=== PATIENT | female | born 1990 | race Two or more races ===

== ENCOUNTER 2024-05-18 09:45 | Inpatient (IN) | payer OTHER ==
[2024-05-18 10:16] VITALS: BMI 18.0
[2024-05-18] MEDS ORDERED: BISMUTH SUBSALICYLATE 262 MG/15 ML BTL PO PRN (11:16)
[2024-05-18] MEDS ORDERED: LOPERAMIDE HCL 2 MG CAPSULE PO PRN (11:16)
[2024-05-18] MEDS ORDERED: MAGNESIUM HYDROX 2400MG/30ML ORAL SUSPENSION 30 ML CUP PO PRN (11:16)
[2024-05-18] MEDS ORDERED: IBUPROFEN 400 MG TABLET (FP) PO PRN (11:16)
[2024-05-18] MEDS ORDERED: BENZOCAINE/MENTHOL (CHLORASEPTIC ) LOZENGE MM PRN (11:16)
[2024-05-18] MEDS ORDERED: guaiFENesin 600 MG TABLET.ER (FP) PO PRN (11:16)
[2024-05-18] MEDS ORDERED: NICOTINE POLACRILEX 2 MG LOZENGE BC PRN (11:16)
[2024-05-18] MEDS ORDERED: P-EPHED 60MG/TRIPROLIDI 2.5MG TABLET PO PRN (11:16)
[2024-05-18] MEDS ORDERED: NALOXONE (NARCAN) HCL 4 MG/0.1 ML SPRAY NS PRN (11:16)
[2024-05-18] MEDS ORDERED: BENZONATATE 200 MG CAPSULE PO PRN (11:16)
[2024-05-18] MEDS ORDERED: POLYETHYLENE GLYCOL (HEALTHYLAX) 3350 17 GM PACKET PO PRN (11:16)
[2024-05-18] MEDS ORDERED: ACETAMINOPHEN 325 MG TABLET (FP) PO PRN (11:16)
[2024-05-18] MEDS ORDERED: NALOXONE HCL 0.4 MG/ML VIAL IM PRN (11:16)
[2024-05-18] MEDS ORDERED: ONDANSETRON *ODT* 4 MG TABLET ONE (13:20)
[2024-05-18] MEDS: ONDANSETRON *ODT* 4 MG TABLET SL PRN (13:21)
[2024-05-18] MEDS: METHOCARBAMOL 500 MG TABLET PO PRN (18:14)
[2024-05-18] MEDS: hydrOXYzine PAMOATE 25 MG CAPSULE (FP) PO PRN (18:14)
[2024-05-18] MEDS: methaDONE HCL 10 MG TABLET (FOR DETOX USE ONLY) PO ONE (21:48)
[2024-05-18] MEDS: TRIMETHOBENZAMIDE HCL 200MG/2ML INJ IM ONE (21:52)
[2024-05-18] MEDS: MELATONIN 5 MG TABLETS PO SCH (22:53)
[2024-05-18] MEDS: THIAMINE 100 MG TABLET PO SCH (22:53)
[2024-05-19] MEDS: PRENATAL VITAMINS W/ FOLIC ACID TABLET (FP) PO SCH (10:11)
[2024-05-20] MEDS: methaDONE HCL 10 MG TABLET (FOR DETOX USE ONLY) PO ONE (10:02)
[2024-05-20] MEDS: hydrOXYzine PAMOATE 25 MG CAPSULE (FP) PO PRN (10:22)
[2024-05-20] MEDS: DICYCLOMINE HCL 10 MG CAPSULE PO PRN (10:22)
[2024-05-20] MEDS: traZODone HCL 50 MG TABLET (FP) PO SCH (21:22)
[2024-05-21] MEDS: methaDONE HCL 10 MG TABLET PO ONE (13:03)
[2024-05-21] MEDS: cloNIDine HCL 0.1 MG TABLET PO SCH (13:09)
[2024-05-21] MEDS ORDERED: DIVALPROEX SODIUM 250 MG TABLET E.C. PO SCH (22:00)
[2024-05-21] MEDS: traZODone HCL 100 MG TABLET (FP) PO SCH (22:20)
[2024-05-21] MEDS: OLANZapine 5 MG TABLET PO SCH (22:20)
[2024-05-22] MEDS ORDERED: methaDONE HCL 10 MG TABLET (FOR DETOX USE ONLY) PO ONE (10:00)
[2024-05-22] MEDS: methaDONE HCL 10 MG TABLET PO ONE (10:27)
[2024-05-22] MEDS ORDERED: methaDONE HCL 10 MG TABLET PO ONE (10:45)
[2024-05-23] MEDS ORDERED: cloNIDine HCL 0.1 MG TABLET PO PRN
[2024-05-23] MEDS: methaDONE HCL 10 MG TABLET PO ONE (10:03)
[2024-05-23 13:27] LABS: BASO % 0.4 % (0-2.0); EOS % 1.4 % (0-4.5); HEMATOCRIT 33.7 % (32.4-45.2); HEMOGLOBIN 10.9 GM/dL (10.7-15.3); LYMPH % 43.5 % (8-40); MCH 27.4 pg (25.7-33.7); MCHC 32.4 g/dl (32.0-36.0); MEAN CELL VOLUME 84.6 fl (80-96); MEAN PLT VOLUME 8.1 fl (7.5-11.1); MONO % 5.6 % (3.8-10.2); NEUT % 49.1 % (42.8-82.8); PLATELET COUNT 400 10^3/uL (134-434); RBC 3.98 M/mm3 (3.60-5.2); RDW 17.1 % (11.6-15.6); WHITE BLOOD COUNT 5.4 K/mm3 (4.0-10.0)
[2024-05-23 13:35] LABS: POTASSIUM 4.7 mmol/L (3.5-5.1)
[2024-05-23 13:37] LABS: BLOOD UREA NITROGEN 9.9 mg/dL (7-18); CALCIUM 9.3 mg/dL (8.5-10.1)
[2024-05-23 13:41] LABS: CREATININE 0.5 mg/dL (0.55-1.3)
[2024-05-24] MEDS ORDERED: methaDONE HCL 40 MG DISPERSABLE TABLET PO ONE ×2 (10:00)
[2024-05-24] MEDS: NICOTINE POLACRILEX 2 MG GUM BUC PRN (10:01)
[2024-05-24] MEDS: METHOCARBAMOL 500 MG TABLET PO SCH ×2 (18:22→22:04)
[2024-05-25] MEDS: methaDONE HCL 40 MG DISPERSABLE TABLET PO ONE (09:07)
[2024-05-25 09:21] VITALS: RESP 16
[2024-05-25] MEDS ORDERED: methaDONE 40 MG, methaDONE 10 MG PO ONE (10:00)
[2024-05-25] MEDS: IBUPROFEN 600 MG TABLET (FP) PO PRN (14:36)
[2024-05-26] MEDS: BENZOCAINE 20 % GEL TUBE MM PRN (04:39)
[2024-05-26] MEDS: methaDONE HCL 40 MG DISPERSABLE TABLET PO ONE (06:06)
[2024-05-26] MEDS: MAG HYDROX/AL HYDROX/SIMETH 30 ML UNIT-DOSE CUP PO PRN (07:09)
[2024-05-26 09:05] VITALS: BP 111/75; PULSE 100; TEMP 97.7
[2024-05-26] MEDS ORDERED: methaDONE 40 MG, methaDONE 20 MG PO ONE (10:00)
== END 2024-05-26 09:31 | disposition home or self-care (01) | DRG 773 ==
LOC: YASAS 09:45 → Y6N 13:08 → Y3N 13:36
PROVIDERS: ADMIT Allergy & Immunology; ATTEND Surgery
PROC: HZ2ZZZZ Detoxification Services for Substance Abuse Treatment (ICD-10-PCS; principal; 2024-05-18)
DX: F11.23 Opioid dependence with withdrawal (principal); F14.20 Cocaine dependence, uncomplicated; F17.210 Nicotine dependence, cigarettes, uncomplicated; F31.9 Bipolar disorder, unspecified; F19.282 Other psychoactive substance dependence with psychoactive substance-induced sleep disorder; F19.280 Other psychoactive substance dependence with psychoactive substance-induced anxiety disorder; F19.24 Other psychoactive substance dependence with psychoactive substance-induced mood disorder; G47.00 Insomnia, unspecified; Z56.0 Unemployment, unspecified; Z59.00 Homelessness unspecified
CPT/HCPCS: 36415; 80048; 80305; 80307; 81025; 85025; 86593; 86780; Q0162

== ENCOUNTER 2024-08-30 13:53 | Inpatient (IN) | payer OTHER ==
[2024-08-30 14:23] VITALS: BMI 18.2
[2024-08-30] MEDS ORDERED: guaiFENesin 600 MG TABLET.ER (FP) PO PRN (15:02)
[2024-08-30] MEDS ORDERED: BENZOCAINE/MENTHOL (CHLORASEPTIC ) LOZENGE MM PRN (15:02)
[2024-08-30] MEDS ORDERED: MAGNESIUM HYDROX 2400MG/30ML ORAL SUSPENSION 30 ML CUP PO PRN (15:02)
[2024-08-30] MEDS ORDERED: IBUPROFEN 400 MG TABLET (FP) PO PRN (15:02)
[2024-08-30] MEDS ORDERED: POLYETHYLENE GLYCOL (HEALTHYLAX) 3350 17 GM PACKET PO PRN (15:02)
[2024-08-30] MEDS ORDERED: BENZONATATE 200 MG CAPSULE PO PRN (15:02)
[2024-08-30] MEDS ORDERED: LOPERAMIDE HCL 2 MG CAPSULE PO PRN (15:02)
[2024-08-30] MEDS ORDERED: NALOXONE (NARCAN) HCL 4 MG/0.1 ML SPRAY NS PRN (15:02)
[2024-08-30] MEDS ORDERED: ACETAMINOPHEN 325 MG TABLET (FP) PO PRN (15:02)
[2024-08-30] MEDS ORDERED: diazePAM 5 MG TABLET ONE (16:03)
[2024-08-30] MEDS ORDERED: methaDONE HCL 10 MG TABLET (FOR DETOX USE ONLY) ONE (16:04)
[2024-08-30] MEDS ORDERED: PRENATAL VITAMINS W/ FOLIC ACID TABLET (FP) PO ONE (16:04)
[2024-08-30] MEDS: PRENATAL VITAMINS W/ FOLIC ACID TABLET (FP) PO SCH (16:07)
[2024-08-30] MEDS: diazePAM 5 MG TABLET PO SCH (16:08)
[2024-08-30] MEDS: methaDONE HCL 10 MG TABLET PO ONE (16:08)
[2024-08-30] MEDS ORDERED: methaDONE HCL 10 MG TABLET PO PRN (17:03)
[2024-08-30] MEDS: cloNIDine HCL 0.1 MG TABLET PO SCH (17:30)
[2024-08-30] MEDS: THIAMINE 100 MG TABLET PO SCH (22:36)
[2024-08-30] MEDS: MELATONIN 5 MG TABLETS PO SCH (22:36)
[2024-08-31] MEDS: methaDONE 40 MG, methaDONE 10 MG PO ONE (10:15)
[2024-08-31] MEDS: NICOTINE 14 MG/24 HOURS TOPICAL PATCH TD SCH (10:18)
[2024-08-31] MEDS: hydrOXYzine PAMOATE 25 MG CAPSULE (FP) PO PRN (12:56)
[2024-08-31] MEDS: traZODone HCL 50 MG TABLET (FP) PO SCH (22:47)
[2024-08-31] MEDS: METHOCARBAMOL 500 MG TABLET PO PRN (22:48)
[2024-09-01] MEDS ORDERED: cloNIDine HCL 0.1 MG TABLET PO PRN
[2024-09-01] MEDS: diazePAM 5 MG TABLET PO SCH (05:59)
[2024-09-01] MEDS: methaDONE 40 MG, methaDONE 20 MG PO ONE (09:49)
[2024-09-01] MEDS: diazePAM 5 MG TABLET PO PRN (17:48)
[2024-09-02] MEDS: diazePAM 5 MG TABLET PO SCH (05:44)
[2024-09-02] MEDS: methaDONE 40 MG, methaDONE 30 MG PO ONE (09:05)
[2024-09-02 10:26] LABS: POTASSIUM 3.8 mmol/L (3.5-5.1)
[2024-09-02 10:28] LABS: CALCIUM 8.4 mg/dL (8.5-10.1)
[2024-09-02 10:29] LABS: ALBUMIN 2.4 g/dl (3.4-5.0); BLOOD UREA NITROGEN 8.2 mg/dL (7-18)
[2024-09-02 10:32] LABS: CREATININE 0.7 mg/dL (0.55-1.3)
[2024-09-02 10:33] LABS: BILIRUBIN,TOTAL 0.1 mg/dL (0.2-1); TOT PROT 7.3 g/dl (6.4-8.2)
[2024-09-02] MEDS: DICYCLOMINE HCL 10 MG CAPSULE PO PRN (22:31)
[2024-09-02] MEDS: IBUPROFEN 600 MG TABLET (FP) PO PRN (22:33)
[2024-09-03] MEDS: diazePAM 5 MG TABLET PO ONE (06:00)
[2024-09-03] MEDS: ONDANSETRON *ODT* 4 MG TABLET SL PRN (06:25)
[2024-09-03] MEDS: methaDONE HCL 40 MG DISPERSABLE TABLET PO ONE (09:25)
[2024-09-03] MEDS: MAG HYDROX/AL HYDROX/SIMETH 30 ML UNIT-DOSE CUP PO PRN (14:09)
[2024-09-03] MEDS: BISMUTH SUBSALICYLATE 262 MG/15 ML BTL PO PRN (18:27)
[2024-09-03 20:48] VITALS: TEMP 97.8
[2024-09-04 09:38] VITALS: BP 123/82; PULSE 86; RESP 18
[2024-09-04] MEDS: methaDONE 80 MG, methaDONE 10 MG PO ONE (09:46)
[2024-09-04] MEDS: NALOXONE (NYS OPIOID OVERDOSE PROGRAM) 4 MG/0.1 ML SPRAY NS PRN (13:35)
== END 2024-09-04 09:57 | disposition other institution (70) | DRG 773 ==
LOC: YASAS 13:53 → Y6N 16:26
PROVIDERS: ADMIT Allergy & Immunology; ATTEND Surgery
PROC: HZ2ZZZZ Detoxification Services for Substance Abuse Treatment (ICD-10-PCS; principal; 2024-08-30)
DX: F11.23 Opioid dependence with withdrawal (principal); F10.230 Alcohol dependence with withdrawal, uncomplicated; F14.20 Cocaine dependence, uncomplicated; F17.210 Nicotine dependence, cigarettes, uncomplicated; F19.282 Other psychoactive substance dependence with psychoactive substance-induced sleep disorder; F19.280 Other psychoactive substance dependence with psychoactive substance-induced anxiety disorder; F19.24 Other psychoactive substance dependence with psychoactive substance-induced mood disorder; F25.9 Schizoaffective disorder, unspecified; G47.00 Insomnia, unspecified
CPT/HCPCS: 36415; 80053; 80305; 80307; 81025; 86593; 86780; 93005; 93010; Q0162

== ENCOUNTER 2024-11-09 09:15 | Inpatient (IN) | payer OTHER ==
[2024-11-09 09:57] VITALS: BMI 20.5
[2024-11-09] MEDS ORDERED: IBUPROFEN 400 MG TABLET (FP) PO PRN (10:09)
[2024-11-09] MEDS ORDERED: LOPERAMIDE HCL 2 MG CAPSULE PO PRN (10:09)
[2024-11-09] MEDS ORDERED: ACETAMINOPHEN 325 MG TABLET (FP) PO PRN (10:09)
[2024-11-09] MEDS ORDERED: BISMUTH SUBSALICYLATE 524 MG/30 ML PO PRN (10:09)
[2024-11-09] MEDS ORDERED: MAGNESIUM HYDROX 2400MG/30ML ORAL SUSPENSION 30 ML CUP PO PRN (10:09)
[2024-11-09] MEDS ORDERED: NICOTINE POLACRILEX 2 MG LOZENGE BC PRN (10:09)
[2024-11-09] MEDS ORDERED: P-EPHED 60MG/TRIPROLIDI 2.5MG TABLET PO PRN (10:09)
[2024-11-09] MEDS ORDERED: POLYETHYLENE GLYCOL (HEALTHYLAX) 3350 17 GM PACKET PO PRN (10:09)
[2024-11-09] MEDS ORDERED: BENZOCAINE/MENTHOL (CHLORASEPTIC ) LOZENGE MM PRN (10:09)
[2024-11-09] MEDS ORDERED: DICYCLOMINE HCL 10 MG CAPSULE PO PRN (10:09)
[2024-11-09] MEDS ORDERED: guaiFENesin 600 MG TABLET.ER (FP) PO PRN (10:09)
[2024-11-09] MEDS ORDERED: NALOXONE (NARCAN) HCL 4 MG/0.1 ML SPRAY NS PRN (10:09)
[2024-11-09] MEDS ORDERED: ONDANSETRON *ODT* 4 MG TABLET SL PRN (10:09)
[2024-11-09] MEDS ORDERED: methaDONE HCL 10 MG TABLET (FOR DETOX USE ONLY) PO PRN (10:09)
[2024-11-09] MEDS ORDERED: BENZONATATE 200 MG CAPSULE PO PRN (10:09)
[2024-11-09] MEDS ORDERED: MAG HYDROX/AL HYDROX/SIMETH 30 ML UNIT-DOSE CUP PO PRN (10:09)
[2024-11-09] MEDS ORDERED: methaDONE HCL 10 MG TABLET (FOR DETOX USE ONLY) ONE (11:22)
[2024-11-09] MEDS: methaDONE HCL 10 MG TABLET (FOR DETOX USE ONLY) PO ONE (11:25)
[2024-11-09] MEDS ORDERED: cloNIDine HCL 0.1 MG TABLET ONE (11:36)
[2024-11-09] MEDS: cloNIDine HCL 0.1 MG TABLET PO PRN (11:41)
[2024-11-09] MEDS: traZODone HCL 50 MG TABLET (FP) PO SCH (21:35)
[2024-11-09] MEDS: THIAMINE 100 MG TABLET PO SCH (21:35)
[2024-11-09] MEDS: MELATONIN 5 MG TABLETS PO SCH (21:35)
[2024-11-09] MEDS: diazePAM 5 MG TABLET PO PRN (21:35)
[2024-11-10] MEDS: PRENATAL VITAMINS W/ FOLIC ACID TABLET (FP) PO SCH (10:27)
[2024-11-10] MEDS: METHOCARBAMOL 500 MG TABLET PO PRN (10:31)
[2024-11-10] MEDS: IBUPROFEN 600 MG TABLET (FP) PO PRN (16:56)
[2024-11-11] MEDS: methaDONE HCL 10 MG TABLET (FOR DETOX USE ONLY) PO ONE (10:15)
[2024-11-11] MEDS: OFLOXACIN 0.3% OTIC SOLUTION 5 ML BOTTLE AU SCH (21:27)
[2024-11-12 12:09] LABS: HEMATOCRIT 32.9 % (32.4-45.2); HEMOGLOBIN 10.8 GM/dL (10.7-15.3); MCH 27.2 pg (25.7-33.7); MCHC 32.7 g/dl (32.0-36.0); MEAN CELL VOLUME 83.3 fl (80-96); MEAN PLT VOLUME 7.6 fl (7.5-11.1); PLATELET COUNT 440 10^3/uL (134-434); RBC 3.95 M/mm3 (3.60-5.2); RDW 17.2 % (11.6-15.6); WHITE BLOOD COUNT 5.6 K/mm3 (4.0-10.0)
[2024-11-12 12:37] LABS: POTASSIUM 3.9 mmol/L (3.5-5.1)
[2024-11-12 12:58] LABS: ALBUMIN 2.9 g/dl (3.4-5.0); BLOOD UREA NITROGEN 11.2 mg/dL (7-18); CALCIUM 8.7 mg/dL (8.5-10.1)
[2024-11-12 13:02] LABS: CREATININE 0.6 mg/dL (0.55-1.3)
[2024-11-12 13:03] LABS: BILIRUBIN,TOTAL 0.2 mg/dL (0.2-1); TOT PROT 7.2 g/dl (6.4-8.2)
[2024-11-13] MEDS ORDERED: diazePAM 5 MG TABLET PO PRN (09:57)
[2024-11-13] MEDS ORDERED: methaDONE HCL 10 MG TABLET (FOR DETOX USE ONLY) PO ONE ×2 (10:00)
[2024-11-13] MEDS: hydrOXYzine PAMOATE 25 MG CAPSULE (FP) PO ONE (10:02)
[2024-11-13] MEDS: diazePAM 5 MG TABLET PO ONE (22:45)
[2024-11-14] MEDS: NALOXONE (NYS OPIOID OVERDOSE PROGRAM) 4 MG/0.1 ML SPRAY NS SCH (08:00)
[2024-11-14] MEDS: methaDONE HCL 40 MG DISPERSABLE TABLET PO SCH (10:06)
[2024-11-14] MEDS: NICOTINE POLACRILEX 2 MG GUM BUC PRN (10:28)
[2024-11-15 06:28] VITALS: RESP 16
[2024-11-15 09:12] VITALS: BP 124/79; PULSE 90; TEMP 97.8
== END 2024-11-15 14:09 | disposition other institution (70) | DRG 773 ==
LOC: YASAS 09:15 → Y3N 12:05
PROVIDERS: ADMIT Allergy & Immunology; ATTEND Allergy & Immunology
PROC: HZ2ZZZZ Detoxification Services for Substance Abuse Treatment (ICD-10-PCS; principal; 2024-11-09)
DX: F11.23 Opioid dependence with withdrawal (principal); F10.230 Alcohol dependence with withdrawal, uncomplicated; F14.20 Cocaine dependence, uncomplicated; F17.210 Nicotine dependence, cigarettes, uncomplicated; F31.9 Bipolar disorder, unspecified; G47.00 Insomnia, unspecified; Z59.02 Unsheltered homelessness; Z56.0 Unemployment, unspecified
CPT/HCPCS: 0241U-QW; 36415; 80053; 80305; 80307; 85027; 86593; 86780; 87811; 93005; 93010

== ENCOUNTER 2024-11-15 14:28 | Inpatient (IN) | payer OTHER ==
[2024-11-15] MEDS ORDERED: MAGNESIUM HYDROX 2400MG/30ML ORAL SUSPENSION 30 ML CUP PO PRN (16:39)
[2024-11-15] MEDS ORDERED: hydrOXYzine PAMOATE 25 MG CAPSULE (FP) PO PRN (16:39)
[2024-11-15] MEDS ORDERED: ACETAMINOPHEN 325 MG TABLET (FP) PO PRN (16:39)
[2024-11-15] MEDS ORDERED: MAG HYDROX/AL HYDROX/SIMETH 30 ML UNIT-DOSE CUP PO PRN (16:39)
[2024-11-15] MEDS ORDERED: IBUPROFEN 400 MG TABLET (FP) PO PRN (16:39)
[2024-11-15] MEDS ORDERED: POLYETHYLENE GLYCOL (HEALTHYLAX) 3350 17 GM PACKET PO PRN (16:39)
[2024-11-15] MEDS ORDERED: NICOTINE POLACRILEX 2 MG LOZENGE BC PRN (16:39)
[2024-11-15] MEDS ORDERED: BENZOCAINE/MENTHOL (CHLORASEPTIC ) LOZENGE MM PRN (16:39)
[2024-11-15] MEDS ORDERED: LOPERAMIDE HCL 2 MG CAPSULE PO PRN (16:39)
[2024-11-15] MEDS ORDERED: guaiFENesin 600 MG TABLET.ER (FP) PO PRN (16:39)
[2024-11-15] MEDS ORDERED: BENZONATATE 200 MG CAPSULE PO PRN (16:39)
[2024-11-15] MEDS: THIAMINE 100 MG TABLET PO SCH (22:31)
[2024-11-15] MEDS: IBUPROFEN 600 MG TABLET (FP) PO PRN (22:31)
[2024-11-15] MEDS: MELATONIN 5 MG TABLETS PO SCH (22:31)
[2024-11-15] MEDS: traZODone HCL 50 MG TABLET (FP) PO SCH (22:31)
[2024-11-15] MEDS: METHOCARBAMOL 500 MG TABLET PO PRN (22:31)
[2024-11-16] MEDS: PRENATAL VITAMINS W/ FOLIC ACID TABLET (FP) PO SCH (06:17)
[2024-11-16] MEDS: methaDONE HCL 40 MG DISPERSABLE TABLET PO SCH (07:25)
[2024-11-16] MEDS: NICOTINE POLACRILEX 2 MG GUM BUC PRN (10:00)
[2024-11-16] MEDS ORDERED: methaDONE HCL 40 MG DISPERSABLE TABLET PO SCH (12:32)
[2024-11-16] MEDS: CLINDAMYCIN PHOSPHATE 1% TOPICAL GEL 30 GM TUBE TP SCH (13:52)
[2024-11-16] MEDS: GABAPENTIN 100 MG CAPSULE PO SCH ×2 (13:54→23:07)
[2024-11-16] MEDS: DOXYCYCLINE HYCLATE 100 MG TABLET PO SCH (18:14)
[2024-11-16] MEDS: traZODone HCL 100 MG TABLET (FP) PO SCH (23:07)
[2024-11-17] MEDS: BACLOFEN 10 MG TABLET (FP) PO SCH (09:11)
[2024-11-18 06:35] VITALS: BP 103/61; PULSE 78; RESP 16; TEMP 98.7
[2024-11-18] MEDS: NALOXONE (NYS OPIOID OVERDOSE PROGRAM) 4 MG/0.1 ML SPRAY NS SCH (15:58)
== END 2024-11-18 16:15 | disposition left against medical advice (07) | DRG 770 ==
LOC: YASAS 14:28 → Y3NR 14:29
PROVIDERS: ADMIT Psychiatry & Neurology Pain Medicine; ATTEND Psychiatry & Neurology Pain Medicine
PROC: HZ42ZZZ Group Counseling for Substance Abuse Treatment, Cognitive-Behavioral (ICD-10-PCS; principal; 2024-11-15)
DX: F11.20 Opioid dependence, uncomplicated (principal); F10.20 Alcohol dependence, uncomplicated; F14.10 Cocaine abuse, uncomplicated; F17.210 Nicotine dependence, cigarettes, uncomplicated; F31.9 Bipolar disorder, unspecified; G47.00 Insomnia, unspecified; L73.8 Other specified follicular disorders
CPT/HCPCS: J0475

== ENCOUNTER 2025-01-30 08:55 | Inpatient (IN) | payer OTHER ==
[2025-01-30 09:32] VITALS: BMI 20.2
[2025-01-30] MEDS ORDERED: BENZONATATE 200 MG CAPSULE PO PRN (10:24)
[2025-01-30] MEDS ORDERED: ACETAMINOPHEN 325 MG TABLET (FP) PO PRN (10:24)
[2025-01-30] MEDS ORDERED: MAGNESIUM HYDROX 2400MG/30ML ORAL SUSPENSION 30 ML CUP PO PRN (10:24)
[2025-01-30] MEDS ORDERED: NALOXONE (NARCAN) HCL 4 MG/0.1 ML SPRAY NS PRN (10:24)
[2025-01-30] MEDS ORDERED: MAG HYDROX/AL HYDROX/SIMETH 30 ML UNIT-DOSE CUP PO PRN (10:24)
[2025-01-30] MEDS ORDERED: guaiFENesin 600 MG TABLET.ER (FP) PO PRN (10:24)
[2025-01-30] MEDS ORDERED: LOPERAMIDE HCL 2 MG CAPSULE PO PRN (10:24)
[2025-01-30] MEDS ORDERED: DICYCLOMINE HCL 10 MG CAPSULE PO PRN (10:24)
[2025-01-30] MEDS ORDERED: BENZOCAINE/MENTHOL (CHLORASEPTIC ) LOZENGE MM PRN (10:24)
[2025-01-30] MEDS ORDERED: BISMUTH SUBSALICYLATE 524 MG/30 ML PO PRN (10:24)
[2025-01-30] MEDS ORDERED: traZODone HCL 50 MG TABLET (FP) PO PRN (10:24)
[2025-01-30] MEDS ORDERED: ONDANSETRON *ODT* 4 MG TABLET SL PRN (10:24)
[2025-01-30] MEDS ORDERED: IBUPROFEN 400 MG TABLET (FP) PO PRN (10:24)
[2025-01-30] MEDS ORDERED: POLYETHYLENE GLYCOL (HEALTHYLAX) 3350 17 GM PACKET PO PRN (10:24)
[2025-01-30] MEDS ORDERED: clonazePAM 0.5 MG ODT TABLETS SL PRN (10:27)
[2025-01-30] MEDS ORDERED: methaDONE HCL 10 MG TABLET (FOR DETOX USE ONLY) ONE (10:48)
[2025-01-30] MEDS: methaDONE HCL 10 MG TABLET PO ONE ×2 (11:04→15:08)
[2025-01-30] MEDS ORDERED: methaDONE HCL 10 MG TABLET PO PRN (12:24)
[2025-01-30] MEDS: cloNIDine HCL 0.1 MG TABLET PO SCH (14:52)
[2025-01-30] MEDS: THIAMINE 100 MG TABLET PO SCH (22:34)
[2025-01-30] MEDS: MIRTAZAPINE 15 MG TABLET (FP) PO SCH (22:34)
[2025-01-30] MEDS: MELATONIN 5 MG TABLETS PO SCH (22:35)
[2025-01-31] MEDS: PRENATAL VITAMINS W/ FOLIC ACID TABLET (FP) PO SCH (09:25)
[2025-01-31] MEDS: methaDONE 40 MG, methaDONE 10 MG PO ONE (09:25)
[2025-01-31] MEDS: NICOTINE 21 MG/24 HOURS TOPICAL PATCH TD SCH (09:29)
[2025-01-31 11:10] LABS: HEMATOCRIT 38.1 % (34.1-44.9); MCHC 31.5 g/dl (32.2-35.5); MEAN CELL VOLUME 86.8 fl (79.4-94.8); PLATELET COUNT 540 x10^3/uL (182-369); RDW 14.9 % (12.1-16.8)
[2025-01-31] MEDS: hydrOXYzine PAMOATE 25 MG CAPSULE (FP) PO PRN (11:17)
[2025-01-31] MEDS: IBUPROFEN 600 MG TABLET (FP) PO PRN (11:17)
[2025-01-31 11:18] LABS: POTASSIUM 3.2 mmol/L (3.5-5.1)
[2025-01-31 11:36] LABS: ALBUMIN 3.1 g/dl (3.4-5.0); CALCIUM 8.9 mg/dL (8.5-10.1); CREATININE 0.6 mg/dL (0.55-1.3)
[2025-01-31 11:38] LABS: BILIRUBIN,TOTAL 0.6 mg/dL (0.2-1); TOT PROT 7.8 g/dl (6.4-8.2)
[2025-01-31 18:48] LABS: HIV INTERPRETATION NEGATIVE (NEGATIVE)
[2025-01-31 19:19] LABS: HCV DIAGNOSTIC IN-HOUSE W/RFLX REACTIVE (NONREACTIVE)
[2025-01-31] MEDS: traZODone HCL 50 MG TABLET (FP) PO SCH (21:56)
[2025-02-01] MEDS ORDERED: cloNIDine HCL 0.1 MG TABLET PO PRN
[2025-02-01] MEDS: POTASSIUM CHLORIDE ORAL LIQUID 20 MEQ/15 ML PO ONE ×2 (09:55→10:25)
[2025-02-01] MEDS: methaDONE 40 MG, methaDONE 20 MG PO ONE (10:19)
[2025-02-02] MEDS: methaDONE 40 MG, methaDONE 30 MG PO ONE (10:32)
[2025-02-02] MEDS: NICOTINE POLACRILEX 2 MG GUM BUC PRN (14:18)
[2025-02-02] MEDS ORDERED: HYDROCORTISONE 1% TOPICAL CREAM 30 GM TUBE TP PRN (15:44)
[2025-02-03] MEDS: METHOCARBAMOL 500 MG TABLET PO PRN (04:10)
[2025-02-03] MEDS: methaDONE HCL 40 MG DISPERSABLE TABLET PO ONE (09:44)
[2025-02-03] MEDS: POTASSIUM CHLORIDE ORAL LIQUID 20 MEQ/15 ML PO ONE (17:16)
[2025-02-04 09:30] VITALS: BP 113/66; PULSE 87; RESP 18; TEMP 97.8
[2025-02-04] MEDS ORDERED: methaDONE 80 MG, methaDONE 10 MG PO ONE (10:00)
[2025-02-04] MEDS: methaDONE 80 MG, methaDONE 10 MG PO ONE (10:21)
== END 2025-02-04 10:26 | disposition home or self-care (01) | DRG 773 ==
LOC: YASAS 08:55 → Y3N 11:15
PROVIDERS: ADMIT Allergy & Immunology; ATTEND Allergy & Immunology
PROC: HZ2ZZZZ Detoxification Services for Substance Abuse Treatment (ICD-10-PCS; principal; 2025-01-30)
DX: F11.23 Opioid dependence with withdrawal (principal); F14.20 Cocaine dependence, uncomplicated; F10.20 Alcohol dependence, uncomplicated; F17.210 Nicotine dependence, cigarettes, uncomplicated; F31.9 Bipolar disorder, unspecified; F19.24 Other psychoactive substance dependence with psychoactive substance-induced mood disorder; G47.00 Insomnia, unspecified; R76.8 Other specified abnormal immunological findings in serum; Z86.19 Personal history of other infectious and parasitic diseases; Z56.0 Unemployment, unspecified; Z59.00 Homelessness unspecified
CPT/HCPCS: 36415; 80053; 80305; 80307; 81025; 85027; 86593; 86780; 86803; 87389; 87522; 93005; 93010